=== PATIENT | female | born 1970 | race Caucasian/White ===

== ENCOUNTER 2020-10-01 17:21 | Inpatient (IN) | payer OTHER ==
[~2020-10-01] VITALS: Ht 165.1 cm; Wt 131.5 kg
--- NOTE | ~2020-10-01 | EMS ---
[facility] [address] [place] [address] EMS Patient Care Report Name: SHELDON MARTINEZ Room #: PRE M.R.#: [id number] Admission: Attend Phys: Discharge: Date of : 72 Report #: [id number] THIS REPORT FOR: //name// Report Transmitted: 10/01/2020 17:22 EMS Care Summary [place], [place]/[facility] Incident [id number] @ 10/01/2020 16:50 Incident Location [address] [place] [id number] Patient SHELDON MARTINEZ Female, 50 Years 1970 Patient Address [address] [place] [address] Patient History None Reported, Patient Allergies No known allergies, Patient Medications Albuterol, Chief Complaint RESPIRATORY DISTRESS Disposition Transported [place] Dispatch Reason Breathing Problem Transported To [facility] Narrative PT FOUND SITTING ON CHAIR IN LIVING ROOM OF HER HOME. ON EMS ARRIVAL PT IS GASPING AND SAYING "I CAN'T BREATHE, I THINK I HAVE FLORES". PT THEN GOES LIMP AND STOPS RESPONDING. PT STILL HYPERVENTILATING AND MAINTAINS A PALPABLE PULSE. PT MOVED TO STRETCHER AND AMBULANCE NOTED. IN AMBULANCE PT IMMEDIATELY [facility] [address] [place] [address] EMS Patient Care Report Name: SHELDON MARTINEZ Room #: [facility] Ld#: [id number] Admission: Attend Phys: Discharge: Date of : 72 Report #: [id number] VENTILATED W/ BVM NOTED. PT EASY TO VENTILATE W/ BVM. PT REMAINS UNABLE TO ANSWER ANY EMS QUESTIONS ENROUTE. PT HAS NO VISIBLE TRAUMA. NO OTHER CHANGES NOTED ENROUTE. Initial Vitals @17:02P: 179,SpO2: 91, @17:03P: 171,R: 18,BP: 218/168,Pain: 0/10,GCS: 15,CO: 1,SpO2: 99,Revised Trauma: 12, Assessments @16:58MENTAL:Confused,SKIN:Diaphoresis,HEENT:Head/Face: No Abnormalities,LUNG SOUNDS:General: No Abnormalities,ABDOMEN:General: No Abnormalities,PELVIS//GI:No Abnormalities,EXTREMITIES:PULSE:NEURO:No Abnormalities,@17:07MENTAL:Unresponsive,SKIN:Diaphoresis,HEENT:Head/Face: No Abnormalities,LUNG SOUNDS:ABDOMEN:PELVIS//GI:Incontinence,EXTREMITIES:PULSE:NEURO: Impression Acute Respiratory Distress (Dyspnea) Procedures @16:58ALS AssessmentResponse: UnchangedSucceeded@17:00StretcherResponse: Unchanged@17:063-Lead ECGResponse: UnchangedSucceeded@17:09NPA Response: UnchangedSucceeded@17:06Saline Lock 0cc (18 ga) Site: Antecubital-LeftResponse: UnchangedSucceeded@17:02Oxygen FlowRate: 15 Device: Bag Valve Mask (BVM) Response: ImprovedSucceeded@17:04Albuterol - 2.5 Milligrams (mg) - NebulizedResponse: Unchanged@17:04Atrovent - 0.5 Milligrams (mg) - NebulizedResponse: Unchanged Timeline 16:49,Call Received 16:49,Dispatch Notified 16:50,Dispatched 16:51,En Route 16:57,On Scene 16:58,At Patient 16:58,ALS Assessment,Response: UnchangedSucceeded, 17:00,Stretcher,Response: Unchanged 17:02,Oxygen FlowRate: 15 Device: Bag Valve Mask (BVM) Response: ImprovedSucceeded, 17:02,BP: / M,PULSE: 179,RR: R,SPO2: 91 Ox,ETCO2: ,BG: ,PAIN: ,GCS: , 17:03,BP: 218/168 M,PULSE: 171,RR: 18 R,SPO2: 99 Ox,ETCO2: ,BG: ,PAIN: 0,GCS: 15, 17:04,Albuterol - 2.5 Milligrams (mg) - Nebulized,Response: Unchanged 17:04,Atrovent - 0.5 Milligrams (mg) - Nebulized,Response: Unchanged 17:06,3-Lead ECG,Response: UnchangedSucceeded, [facility] [address] [place] [address] EMS Patient Care Report Name: SHELDON MARTINEZ Room #: PRE M.R.#: [id number] Admission: Attend Phys: Discharge: Date of : 72 Report #: [id number] 17:06,Saline Lock 0cc 18 ga Site: Antecubital-Left,Response: UnchangedSucceeded, 17:07,Depart Scene 17:09,NPA Response: UnchangedSucceeded, 17:19,At Destination 17:25,Call Closed Disclaimer v1.1 Copyright 2020 [employer] This EMS Care Summary contains data elements from the applicable legal record (which may be displayed differently). It is designed to provide pertinent information for the following purposes: continuity of care, clinical quality, and state data reporting. The complete legal record is available to ED staff and administrators of the receiving hospital in [employer]'s Patient Tracker. All data is provided "as is."
[2020-10-01 17:24] VITALS: BP 95/69
--- NOTE | 2020-10-01 18:16 | NUR ---
PULSE LOST AT 1744-SEE CODE CHART
[2020-10-01 18:19] LABS: ABSOLUTE NEUTROPHILS 8.6 thou/uL (1.4-8.2); EOSINOPHILS 2.3 % (0.0-3.0); HEMATOCRIT 41.5 % (37.0-47.0); HEMOGLOBIN 13.1 gm/dL (12.0-15.0); LYMPHOCYTES 18.8 % (24.0-44.0); MCH 31.1 pg (26.0-34.0); MCHC 31.6 g/dL (28.0-37.0); MCV 98.6 fL (80.0-100.0); MONOCYTES 6.3 % (1.0-8.0); PLATELET COUNT 295 thou/uL (150-400); POLYS 71.6 % (36.0-66.0); RBC 4.21 mil/uL (4.20-5.00); RDW 14.9 % (10.5-14.5)
[2020-10-01 18:19] LABS: URINE BILIRUBIN NEGATIVE (Negative); URINE BLOOD 1+ (Negative); URINE CLARITY CLEAR; URINE COLOR YELLOW; URINE GLUCOSE-RANDOM* NEGATIVE (Negative); URINE KETONES NEGATIVE (Negative); URINE LEUKOCYTES-REFLEX NEGATIVE (Negative); URINE NITRITE-REFLEX NEGATIVE (Negative); URINE PROTEIN (DIPSTICK) 3+ (Negative); URINE SPECIFIC GRAVITY >= 1.030 (1.005-1.035); URINE UROBILINOGEN 0.2 E.U./dl (0.2-1.0)
[2020-10-01 18:24] LABS: CASTS None Seen /LPF (None Seen); SQUAMOUS 0-3 Few /LPF (0-3)
[2020-10-01 18:25] LABS: BACTERIA-REFLEX 1-9 Few /HPF (None Seen); CRYSTALS None Seen /LPF (None Seen); URINE RBC 3-10 Few /HPF (0-2); URINE WBC-REFLEX 0-5 Rare /HPF (0-5)
[2020-10-01 18:27] LABS: AMP/METHAMP Negative (Negative); BARBITURATES Negative (Negative); BENZODIAZEPINES Negative (Negative); COCAINE Negative (Negative); METHADONE Negative (Negative); OPIATES POSITIVE (Negative); PCP Negative (Negative)
[2020-10-01 18:32] LABS: ANION GAP 7 mmol/L (7-16); BUN 14 mg/dL (7-18); CALCIUM 8.8 mg/dL (8.5-10.1); CHLORIDE 106 mmol/L (98-107); CO2 29 mmol/L (21-32); CREATININE 1.2 mg/dL (0.6-1.0); GLUCOSE 265 mg/dL (74-106); POTASSIUM 4.3 mmol/L (3.5-5.1); SODIUM 142 mmol/L (136-145)
[2020-10-01 18:43] LABS: ALBUMIN 3.9 g/dL (3.4-5.0); DIRECT BILIRUBIN < 0.1 mg/dL (<0.1-0.2); SGOT 26 U/L (15-37); SGPT 20 U/L (30-65); TOTAL BILIRUBIN 0.2 mg/dL (0.2-1.0); TOTAL PROTEIN 8.3 g/dL (6.4-8.2); TROPONIN-I <0.06 ng/mL (<0.06)
[2020-10-01 18:51] LABS: BE(vivo) -8.8 mmol/L (-2 to +3); HCO3 21.4 mmol/L (22.0-26.0); PCO2 65.9 mmHg (35.0-45.0); PO2 372.7 mmHg (80.0-100.0); pH 7.129 (7.360-7.450); sO2 99.7 % (92.0-98.0)
[2020-10-02] VITALS (45 sets, daily range): BP systolic 90–159; BP diastolic 38–78
--- NOTE | 2020-10-02 02:00 | NUR ---
[address] Y/O PT OF DR KWOK ADMITTED TO ICU INTUBATED AND SEDATED WITHY PROPOFOL GTT. AROUSES EASILY AND FOLLOWS SIMPLE COMMANDS. BENOIT MORRIS. PT IS IN AFIB. CARDIZAM GTT AT 20 MG. # 1 COVID TEST NEGATIVE. REMAINS IN ENHANSED PRECAUTIONS. WILL CONT TO MONITOR
[2020-10-02 04:13] LABS: ALBUMIN 3.5 g/dL (3.4-5.0); CALCIUM 8.8 mg/dL (8.5-10.1); CREATININE 1.1 mg/dL (0.6-1.0); MAGNESIUM 1.8 mg/dL (1.8-2.4); TOTAL BILIRUBIN 0.4 mg/dL (0.2-1.0); TOTAL PROTEIN 7.5 g/dL (6.4-8.2)
[2020-10-02 04:19] LABS: TROPONIN-I 1.2 ng/mL (<0.06)
[2020-10-02 04:41] LABS: BE(vivo) -4.4 mmol/L (-2 to +3); HCO3 20.6 mmol/L (22.0-26.0); PO2 123.8 mmHg (80.0-100.0); pH 7.352 (7.360-7.450); sO2 98.3 % (92.0-98.0)
[2020-10-02 04:49] LABS: ABSOLUTE NEUTROPHILS 10.9 thou/uL (1.4-8.2); BASOPHILS 0.1 % (0.0-2.0); EOSINOPHILS 0.1 % (0.0-3.0); HEMATOCRIT 38.4 % (37.0-47.0); LYMPHOCYTES 3.1 % (24.0-44.0); MCH 32.7 pg (26.0-34.0); MCHC 33.8 g/dL (28.0-37.0); MCV 96.8 fL (80.0-100.0); MONOCYTES 3.2 % (1.0-8.0); PLATELET COUNT 228 thou/uL (150-400); POLYS 93.5 % (36.0-66.0); RBC 3.97 mil/uL (4.20-5.00); RDW 14.3 % (10.5-14.5); WBC 11.6 thou/uL (4.0-11.0)
--- NOTE | 2020-10-02 06:00 | NUR ---
REMAINS INTUBATED. PROPOFOL GTT AT 40 MCG. CARDIZEM REMAINS AT 20 MG AFIB RATE 110. CONT TO AROUSES EASILY AND FOLLOW SIMPLE COMMANDS.
[2020-10-02 12:12] LABS: BE(vivo) -2.1 mmol/L (-2 to +3); HCO3 21.9 mmol/L (22.0-26.0); PCO2 35.2 mmHg (35.0-45.0); PO2 103.6 mmHg (80.0-100.0); pH 7.412 (7.360-7.450); sO2 97.8 % (92.0-98.0)
[2020-10-02] MEDS ORDERED: HYDROCODON-ACE1 EAC8 PO (14:46)
[2020-10-02] MEDS ORDERED: NEURONTIN 300M300 M2 PO (14:47)
[2020-10-02] MEDS ORDERED: VYVANSE70 MG PO (14:48)
[2020-10-02] MEDS ORDERED: ESCITALOPRAM OX20 MG PO (14:48)
[2020-10-02] MEDS ORDERED: TRAZODONE HCL100 MG PO (14:49)
--- NOTE | 2020-10-02 18:20 | NUR ---
ASSUMED CARE OF PT AT 1000, PT IS A GCS OF 15, C/O PAIN TO HER RIBS, LOWER BACK AND KNEES. DR KWOK NOTIFIED AND PAIN MEDS STARTED. PT IWAS FEBRILE THIS EVENING AND PERCOCET ADMINSTERED. PT IS A SR AT THIS TIME AND CONT ON CARDIZEM GTT. SHE IS RESTING ON HER BED WATCHING TV AT THIS TIME. FAMILY MEMBER UPDAted on pt care and has been here to visit pt already..
[2020-10-03] VITALS (24 sets, daily range): BP systolic 94–143; BP diastolic 51–88
--- NOTE | 2020-10-03 04:31 | NUR ---
ASSUMED PT CARE AT 1900. VSS. PT A&0X4. ON 2LNC SATING 94%. PT ON CARDIZEM AT 5 SUCUEFFULLY TITRATED DOWN FROM 20MG/HR. PT TOLERARTING TITRATION WELL. REMAINS IN SR. PT IS OTHERWISE STABLE, WILL CONTINUE TO MONITOR
--- NOTE | 2020-10-03 07:39 | EKG ---
[facility] [place] [address] ELECTROCARDIOGRAM REPORT Name: SHELDON MARTINEZ Room #: 248-P ADM IN M.R.#: [id number] Admission: 10/01/20 Attend Phys: Blayne Alberts MD Discharge: Date of : 72 Report #: [id number] THIS REPORT FOR: cc: [facility] - Clinic physician unknown [facility] - Clinic physician unknown Jac Mata MD [facility] ~ THIS REPORT FOR: //name// [facility] ED Test Date: 2020-10-01 Test Time: 17:33:21 Pat Name: SHELDON MARTINEZ Department: Room: [facility] Gender: F Office Clin Asst: [facility] : 1970 Requested By: Loi Benitez Order Number: [id number] MD: Jac Mata Measurements Intervals [place] Rate: 161 P: NM: QRS: -27 QRSD: 111 T: 91 QT: 308 QTc: 504 Interpretive Statements Atrial fibrillation Borderline left axis deviation Left bundle branch block No previous ECG available for comparison Electronically Signed On 10-03-2020 7:39:49 SERVICE CAR DRIVER by Jac Mata [email or web address] <ELECTRONICALLY SIGNED> By: Jac Mata MD, FACC 10/03/20 0739 32 32 Jac Mata MD, [facility] /EPI
--- NOTE | 2020-10-03 08:08 | HC ---
[facility] [place] [address] CONSULTATION Name: SHELDON MARTINEZ Room #: 248- ADM IN M.R.#: [id number] Admission: 10/01/20 Attend Phys: Blayne Alberts MD Discharge: Date of : 72 Report #: [id number] THIS REPORT FOR: cc: [facility] - Clinic physician unknown [facility] - Clinic physician unknown Frankie Ferraro MD ~ DATE OF SERVICE: 10/02/2020 CARDIOLOGY CONSULTATION INDICATION: Atrial fibrillation. HISTORY OF PRESENT ILLNESS: This is a 50-year-old female with a history of asthma, obesity, presenting with respiratory distress. According to the chart, she was found to be in respiratory distress by EMS. In the ER, this continued and there was a question of absent pulses. The patient was unresponsive and she was intubated. A brief period of CPR and one dose of epinephrine was given. ECG revealed atrial fibrillation. There is a history by family with fever and chills and cough. COVID testing has been negative so far. PAST MEDICAL HISTORY: Asthma. ALLERGIES: PENICILLIN, CLARITHROMYCIN, SULFA, VANCOMYCIN. MEDICATIONS: Please see MAR for full listing. SOCIAL HISTORY: Unobtainable. FAMILY HISTORY: Unobtainable. PHYSICAL EXAMINATION: VITAL SIGNS: Blood pressure is 130/70, heart rate is 100 beats per minute. GENERAL APPEARANCE: This is an obese female, sedated and vented. HEENT: Normocephalic, atraumatic. LUNGS: Diminished breath sounds at the bases. CARDIAC: Irregularly irregular, S1, S2 positive. ABDOMEN: Protuberant, soft, nontender. EXTREMITIES: No cyanosis, trace edema. ECG reveals atrial fibrillation. LABORATORY VALUES: Troponin is 1.32. ASSESSMENT AND PLAN: [facility] [address] [place] [address] CONSULTATION Name: SHELDON MARTINEZ Room #: 248-P ADM IN Tomás.#: [id number] Admission: 10/01/20 Attend Phys: Blayne Alberts MD Discharge: Date of : 72 Report #: [id number] 1. Respiratory failure/asthma, possible asthma exacerbation. Rule out upper respiratory infection. Wean as per Pulmonary. 2. Atrial fibrillation with rapid rates, stable heart rates on IV Cardizem. Await echo findings. 3. Troponin elevation and may be related to supply/demand mismatch in the setting of hypoxia. Will need an ischemic evaluation once her respiratory status stabilizes. <ELECTRONICALLY SIGNED> By: Frankie Ferraro MD 10/03/2008 1205 Frankie Ferraro MD /nt
--- NOTE | 2020-10-03 08:43 | EKG ---
[facility] [place] [address] ELECTROCARDIOGRAM REPORT Name: SHELDON MARTINEZ Room #: 248-P ADM IN M.R.#: [id number] Admission: 10/01/20 Attend Phys: Blayne Alberts MD Discharge: Date of : 72 Report #: [id number] THIS REPORT FOR: cc: [facility] - Clinic physician unknown [facility] - Clinic physician unknown Jero Teixeira MD [facility] ~ THIS REPORT FOR: //name// [facility] Test Date: 2020-10-03 Test Time: 08:34:16 Pat Name: SHELDON MARTINEZ Department: Room: 248 Gender: F [place] Supervisor: SRINIVASAN : 1970 Requested By: Lisa Infante Order Number: [id number] MD: Jero Teixeira Measurements Intervals [place] Rate: 82 P: 22 NM: 174 QRS: -25 QRSD: 109 T: 149 QT: 416 QTc: 486 Interpretive Statements Sinus rhythm Borderline left axis deviation Abnormal R-wave progression, late transition Abnrm T, consider ischemia, anterolateral lds Baseline wander in lead(s) V4,V5 Compared to ECG 10/01/2020 17:33:21 Possible ischemia now present Atrial fibrillation no longer present Left bundle-branch block no longer present Electronically Signed On 10-03-2020 8:43:05 BIOMETRICS ANALYST by Jero Teixeira [email or web address] <ELECTRONICALLY SIGNED> By: Jero Teixeira MD, [facility] 10/03/20842 3 3 Jero Teixeira MD, [facility] /EPI
--- NOTE | 2020-10-03 12:07 | 2DMMODE ---
[facility] [address] [place] [address] 2 D/M-MODE ECHOCARDIOGRAM Name: SHELDON MARTINEZ Room #: 248-P ADM IN M.R.#: [id number] Admission: 10/01/20 Attend Phys: Blayne Alberts MD Discharge: Date of : 72 Report #: [id number] THIS REPORT FOR: cc: [facility] - Clinic physician unknown [facility] - Clinic physician unknown Emeterio Mg MD ~ APPROVED REPORT Study performed: 10/03/2020 10:23:44 EXAM: Comprehensive 2D, Doppler, and color-flow Echocardiogram Patient Location: ICU Room #: 248 Status: routine BSA: 2.28 HR: 94 bpm BP: 109/65 mmHg Rhythm: Atrial Fibrillation Other Information Study Quality: Good Indications Atrial Fibrillation Elevated Troponin S^P Cardiac arrest 2D Dimensions RVDd: 37.37 mm IVSd: 11.11 (7-11mm) LVOT Diam: 23.17 (18-24mm) LVDd: 49.40 mm PWd: 9.88 (7-11mm) Ascending Ao: 37.46 (22-36mm) LVDs: 32.05 (25-40mm) Aortic Root: 29.91 mm IVC: 26.00 mm Volumes Left Atrial Volume (Systole) Single Plane 4CH: 49.27 mL Single Plane 2CH: 55.10 mL LA ESV Index: 25.00 mL/m2 Aortic Valve AoV Peak Ken.: 1.49 m/s AO Peak Gr.: 8.89 mmHg LVOT Max P.18 mmHg LVOT Max V: 1.43 m/s [facility] [address] [place] [address] 2 D/M-MODE ECHOCARDIOGRAM Name: SHELDON MARTINEZ Room #: 248-P [facility] IN EstelitaAgustina#: [id number] Admission: 10/01/20 Attend Phys: Blayne Alberts MD Discharge: Date of : 72 Report #: [id number] RIKY Vmax: 4.04 cm2 Mitral Valve E/A Ratio: 1.1 MV Decel. Time: 184.03 ms MV E Max Ken.: 1.36 m/s MV A Ken.: 1.28 m/s MV PHT: 53.37 ms IVRT: 59.98 ms Pulmonary Valve PV Peak Ken.: 1.12 m/s PV Peak Gr.: 4.98 mmHg Pulmonary Vein P Vein S: 0.72 m/s P Vein A: 0.37 m/s P Vein D: 0.43 m/s P Vein A Dur.: 124.6 msec P Vein S/D Ratio: 1.67 Left Ventricle The left ventricle is normal size. There is normal LV segmental wall motion. There is normal left ventricular wall thickness. Left ventricular systolic function is normal. The left ventricular ejection fraction is within the normal range. LVEF is 55-60%. The left ventricular diastolic function is normal. Right Ventricle The right ventricle is normal size. The right ventricular systolic function is normal. Atria The left atrium size is normal. The right atrium size is normal. Aortic Valve The aortic valve is normal in structure. No aortic regurgitation is present. There is no aortic valvular stenosis. Mitral Valve The mitral valve is normal in structure. There is no mitral valve regurgitation noted. No evidence of mitral valve stenosis. Tricuspid Valve The tricuspid valve is normal in structure. There is no tricuspid valve regurgitation noted. Pulmonic Valve [facility] [address] [place] [address] 2 D/M-MODE ECHOCARDIOGRAM Name: SHELDON MARTINEZ Room #: 248-P ADM IN M.R.#: [id number] Admission: 10/01/20 Attend Phys: Blayne Alberts MD Discharge: Date of : 72 Report #: [id number] The pulmonary valve is normal in structure. There is no pulmonic valvular regurgitation. Great Vessels The aortic root is normal in size. IVC is dilated and collapses >50% with inspiration. Pericardium There is no pericardial effusion. <Conclusion> The left ventricle is normal size. LVEF is 55-60%. The aortic valve is normal in structure. The mitral valve is normal in structure. The tricuspid valve is normal in structure. The pulmonary valve is normal in structure. There is no pericardial effusion. <ELECTRONICALLY SIGNED> By: Emeterio Mg MD 10/03/20 1206 05 05 Emeterio Mg MD /INF
--- NOTE | 2020-10-03 17:03 | NUR ---
Chart reviewed and case discussed with the care team. [employer] Operator spoke with the MANAGER SURGICAL/pt. Consult rec'd for pt pay status. Pt works fulltime and has ins thru [employer]. Copy of the card rec'd and will forward onto admitting. A copy is being placed on the front of the chart. The pt notes her pcp is Dr. Dustin Rivera. She is a&ox4 and indep prior to admission. She does have knee pain which effects her mobility some. She was ext yesterday and weaned off cardezim gtt today. Pt with transfer orders out of the ICU this evening. Will follow on CCU should dc planning needs arise.
--- NOTE | 2020-10-03 18:46 | NUR ---
PT. ARRIVED AT FLOOR AFTER 1800; PT. AOX4; C/O BACK PAIN; PRN PAIN MEDICATION GIVEN BEFORE BEING TRANSFER FROM ICU; EDUCATED ABOUT CALL LIGHT; EDUCATED ABOUT FALL PRECAUTIONS; SR ON THE MONITOR; WILL PASS ON REPORT;
--- NOTE | 2020-10-03 19:09 | NUR ---
AT 1130, PT CALLED THIS NURSE INTO THE ROOM AND REPORTED THAT HER LEFT HAND IV WAS HURTING AND SHE HAS DEVELOPED A RASH ABOVE THE INSERTION SITE. ZITHROMAX IV DRIP ALMOST COMPLETED, BUT STOPPED. IV SITE FLUSHED WITH EASE, AT WHICH TIME, PT STATED, "IT FEELS BETTER WITH THE FLUSH." A REDDENED PATCHY SMOOTH RASH NOTED ABOVE IV SITE THAT FEELS WARM TO TOUCH. REDNESS NOTED TO LEFT CHEST SIMILAR TO THE LOCALIZED REDNESS AT IV SITE. PT STATES, "I MAY BE HAVING AN ALLERGIC REACTION TO THE ANTIBIOTIC." PT DENIES ANY NEW SOB, DYSPNEA OR HOARSENESS. VSS. AFEBRILE. DR. KWOK PAGED @ THIS TIME. AWAITING RESPONSE. ATTEMPTS X [address] KWOK AGAIN THROUGHOUT THE SHIFT. @ 1830, DR. KWOK RETURNED PAGE, AT WHICH TIME, HE WAS NOTIFIED OF EVENT. UPDATED ON IMPROVED PT CONDITION, WITH A DIMINISHING OF REDNESS AND WARMTH TO RASH AREAS. PT DENIES ANY FURTHER PROBLEMS AND STATES, "I FEEL BETTER." DR. KWOK STATES THAT HE WILL INVESTIGATE THE PROBLEM AND GET BACK WITH US.
--- NOTE | 2020-10-03 19:16 | NUR ---
AT 1750, PT TRANSFERRED ON ROOM AIR TO ROOM 209 VIA WC WITH PERSONAL BELONGINGS. PT TOLERATED WELL. REPORT GIVEN TO RAGHU ON CCU.
[2020-10-04] VITALS: BP 131/78
[2020-10-04 04:00] VITALS: BP 142/91
--- NOTE | 2020-10-04 04:22 | NUR ---
Assumed pt care at 1900. Pt is alert and oriented, laying in bed. No sign of distress noted in pt. Verbalizes pain. Pain med administered. Fall precaution in place. Assessment completed and documented. Scheduled meds administered to pt. No acute event overnight. Continue to monitor pt. No further needs at this time
[2020-10-04 07:55] VITALS: BP 139/61
--- NOTE | 2020-10-04 10:55 | NUR ---
Assess due to high BMI 47.1=extreme class III obesity. Admit with asthma exacerbation and required intubation/extubation. No hx diabetes but on carb control diet as steroids causing some hyperglycemia. Pt voices good appetite, happy with food choices. Had no dietary questions. Familiar with carb control diet as both parents have diabetes. She has glucometer at home and routinely checks BG "just in case". Low nutrition risk
[2020-10-04 11:07] VITALS: BP 132/83
[2020-10-04 11:40] VITALS: BP 117/71
--- NOTE | 2020-10-04 16:39 | NUR ---
MEDICATED FOR LOWER BACK PAIN, CONTINUE TO IMPROVE, WALKED WITH PT, AND TOLERATED ACTIVITIES. REPORTED SOB ON THE 2ND TIME WALKING THIS AFTER NOUN. PROGRESSING AND WILL CONTINUE WITH POC.
--- NOTE | 2020-10-04 16:43 | NUR ---
I have reviewed the documentation by SRAVANTHI BURNS from 10/04/20 to 10/04/20 and I concur with it. ANGELA BERGER, PT, DPT
--- NOTE | 2020-10-04 19:39 | NUR ---
ASSESSMENT CHARTED, VSS AND PROGRESSING TOWARDS GOALS, AND WILL CONTINUE WITH POC.
[2020-10-04 20:01] VITALS: BP 123/79
--- NOTE | 2020-10-05 04:00 | NUR ---
SLEPT MOST OF SHIFT. UP AD MAULIK IN HALLS WITH STEADY GAIT. WORKING ON GOALS AND PLAN OF CARE FOR NOC. PAIN MEDS GIVEN NEEDED FOR PAIN WITH NOTED RELIEF. DENIES COMPLAINS OF DIFFICULTY BREATHING. PROGRESSING SLOWLY TOWARDS DISCHARGE GOALS. CONTINUE TO ASSES CLOSELY.
[2020-10-05 04:30] VITALS: BP 134/83
[2020-10-05 08:03] VITALS: BP 135/99
[2020-10-05 11:14] VITALS: BP 124/75
[2020-10-05] MEDS ORDERED: ACETAMINOPHEN650 MG RECTAL (11:51)
[2020-10-05] MEDS ORDERED: PULMICORT0.5 MG/21 INH (11:51)
[2020-10-05] MEDS ORDERED: LEVOFLOXACIN500 MG PO (11:51)
[2020-10-05] MEDS ORDERED: IPRAT-ALBUT 0.5-3 ML INH (11:51)
[2020-10-05] MEDS ORDERED: ADULT LOW DOSE81 MG PO (11:51)
[2020-10-05] MEDS ORDERED: PREDNISONE 5 MG5 MG PO (11:59)
--- NOTE | 2020-10-05 13:35 | NUR ---
Pt dcing home today. Cleared by PT. Pt to stay with her parents at dc. No HH needs are indicated at this time. The attending alerted and HH orders canceled. The pt is being dc'd to outpt f/u care.
[2020-10-05 13:43] VITALS: BP 124/75
[2020-10-05 15:12] VITALS: BP 147/88
[2020-10-05 15:53] VITALS: BP 124/75
--- NOTE | 2020-10-05 18:19 | NUR ---
MEDICATION AND DISCHARGE INSTRUCTIONS GIVEN TO PATIENT SHE VERBALIZED UNDERSTANDING. WAITING FOR FAMILY TO TKAE HER HOME.
--- NOTE | 2020-10-06 16:08 | NUR ---
Pt called indicating she does not have a nebulizer and needs a script faxed to [facility] in [place] [phone], fax [phone]. Script obtained from Dr. Alberts and faxed to the pharmacy. They will order and have it for her tomorrow. Pt aware.
== END 2020-10-05 19:00 | disposition home or self-care (01) | DRG 871 ==
LOC: ER 17:21 → 2N 19:11 → EROBS 19:11 → ICU 10-02 01:11 → 2N 10-03 17:55
PROVIDERS: Emergency Medicine; Pediatrics; ADMIT Internal Medicine; ATTEND Internal Medicine
PROC: 5A1935Z Respiratory Ventilation, Less than 24 Consecutive Hours (ICD-10-PCS; principal; 2020-10-01)
PROC: 5A12012 Performance of Cardiac Output, Single, Manual (ICD-10-PCS; principal; 2020-10-01)
PROC: 0BH18EZ Insertion of Endotracheal Airway into Trachea, Via Natural or Artificial Opening Endoscopic (ICD-10-PCS; principal; 2020-10-01)
PROC: 0DH67UZ Insertion of Feeding Device into Stomach, Via Natural or Artificial Opening (ICD-10-PCS; 2020-10-01)
DX: A41.9 Sepsis, unspecified organism (principal); J96.02 Acute respiratory failure with hypercapnia; J96.01 Acute respiratory failure with hypoxia; J18.9 Pneumonia, unspecified organism; I21.4 Non-ST elevation (NSTEMI) myocardial infarction; Z68.42 Body mass index [BMI] 45.0-49.9, adult; I48.20 Chronic atrial fibrillation, unspecified; J45.902 Unspecified asthma with status asthmaticus; N17.9 Acute kidney failure, unspecified; R73.9 Hyperglycemia, unspecified; E66.01 Morbid (severe) obesity due to excess calories; Z88.1 Allergy status to other antibiotic agents; Z88.5 Allergy status to narcotic agent; Z88.2 Allergy status to sulfonamides; Z88.8 Allergy status to other drugs, medicaments and biological substances; Z86.711 Personal history of pulmonary embolism; Z86.718 Personal history of other venous thrombosis and embolism; Z20.828 Contact with and (suspected) exposure to other viral communicable diseases
CPT/HCPCS: 10078; 10081